=== PATIENT | female | born 1955 | race Caucasian/White ===

== ENCOUNTER → 2016-07-31 | Outpatient (CLI) | payer OTHER ==
[~2016-07-31] MED LIST: ESTR42.5V PV; ESTR42.5V VAGINAL; ESTR8.1S TOPICAL; EVAM1.532 TOPICAL; FINA15GE2 TOPICAL; LEVO-168 PO; MACR100C2 PO; METO-309 PO; MOBI15TA PO; MULT1TAB84 PO; PROT40TA PO; SPIR100T PO; SPIR50TA21 PO; SYNT112T PO; TAB-TAB PO; ZOFR4TAB3 SL
[2016-07-31 09:36] LABS: AUTOMATED NEUTROPHIL # 3.2 TH/MM3 (1.8-7.7); BASOPHIL # 0.1 TH/MM3 (0-0.2); EOSINOPHIL # 0.1 TH/MM3 (0-0.4); EOSINOPHIL % 1.2 % (0.0-4.0); HEMATOCRIT 37.9 % (35.0-46.0); HEMO FLAGS DIFF FINAL; LYMPH % 34.5 % (9.0-44.0); MEAN CELL VOLUME 94.2 FL (80.0-100.0); MEAN CORPUSCULAR HEMOGLOBIN 32.2 PG (27.0-34.0); MEAN CORPUSCULAR HGB CONC 34.2 % (32.0-36.0); MONO % 9.6 % (0.0-8.0); NEUT % 53.7 % (16.0-70.0); PLATELET COUNT 286 TH/MM3 (150-450); RED BLOOD COUNT 4.02 MIL/MM3 (4.00-5.30); RED CELL DISTRIBUTION WIDTH 13.5 % (11.6-17.2); WHITE BLOOD COUNT 5.9 TH/MM3 (4.0-11.0)
[2016-07-31 09:59] LABS: WESTERGREN SEDIMENTATION RATE 5 mm/hr (0-30)
[2016-07-31 10:16] LABS: ALKALINE PHOSPHATASE 83 U/L (45-117); ALT (GPT) 20 U/L (10-53); ANION GAP 7 MEQ/L (5-15); AST (GOT) 15 U/L (15-37); BLOOD UREA NITROGEN 18 MG/DL (7-18); CHLORIDE 102 MEQ/L (98-107); GLOMERULAR FILTRATION RATE 68 ML/MIN (>89); GLUCOSE,FASTING 101 MG/DL (74-99); HDL CHOLESTEROL 64.7 MG/DL (40.0-60.0); LDL CHOLESTEROL 91 MG/DL (0-99); POTASSIUM 4.4 MEQ/L (3.5-5.1); SODIUM (NA) 137 MEQ/L (136-145); THYROXINE (T4) 10.2 MCG/DL (4.8-13.9); TOTAL BILIRUBIN ADULT 0.3 MG/DL (0.2-1.0)
== END ==
LOC: CLAB 09:03
PROVIDERS: ATTEND Family Medicine
DX: E78.2 Mixed hyperlipidemia (principal); E03.9 Hypothyroidism, unspecified
CPT/HCPCS: 36415; 80053; 80061; 84436; 84443; 85025; 85652

== ENCOUNTER 2016-08-18 14:34 | Emergency (ER) | payer OTHER ==
[~2016-08-18] VITALS: Ht 162.6 cm; Wt 82.0 kg
[~2016-08-18 14:34] MED LIST changes: -ESTR42.5V VAGINAL; -EVAM1.532 TOPICAL; -LEVO-168 PO; -MACR100C2 PO; -METO-309 PO; -MULT1TAB84 PO; -SPIR100T PO; -ZOFR4TAB3 SL
[2016-08-18 14:36] VITALS: BP 161/79; PULSE 86; RESP 15; TEMP 98.2; O2SAT 98
--- NOTE | 2016-08-18 17:39 | PD ---
HPI Chief Complaint: Abdominal Pain Time Seen by Provider: 17:30 Travel History International Travel<30 days: No Contact w/Intl Traveler<30days: No Traveled to known affect area: No History of Present Illness HPI 61-year-old female with history of sjogrens, hypothyroidism presents for evaluation of nausea, vomiting, diarrhea, abdominal pain. She reports over the past few days she has had some generalized abdominal pain which she describes as aching sensation which is constant, associated with a sensation of bloating. The pain seems to be worse in the lower quadrants of the abdomen but sometimes it is worse in the upper quadrants of the abdomen. She reports that yesterday evening she began having diarrhea and vomiting. She reports multiple episodes of diarrhea and vomiting throughout the night and throughout the day today which prompted evaluation. Denies any dysuria, flank pain, she has had some chills but she has not had any objective fevers, denies chest pain or cough or congestion or shortness of breath. She reports a history of hysterectomy and appendectomy in the past. No recent antibiotic use. No history of diverticulitis or gallbladder issues. No other complaints. 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) High Cholesterol: No Chemotherapy: No Chest Pain: No Congestive Heart Failure: No COPD: No Diabetes: No Endocrine: Yes Genitourinary: Yes (PROLAPSED BLADDER) Hepatitis: No Hiatal Hernia: No Hypertension: Yes Immune Disorder: Yes (LICHEN PLANUS) Musculoskeletal: Yes (ARTHRITIS L1-5, HIP SPURS) Neurologic: No Psychiatric: No Reproductive: No Respiratory: No Radiation Therapy: No Sleep Apnea: No Thyroid Disease: Yes ?: Not Past Surgical History Abdominal Surgery: No Body Medical Devices: BLADDER TAPE Cardiac Surgery: No Ear Surgery: No Endocrine Surgery: No Eye Surgery: No Genitourinary Surgery: Yes (BLADDER TUCK X2) Gynecologic Surgery: Yes (TOTAL HYSTERECTOMY) Hysterectomy: Yes Oral Surgery: Yes (TONSILLECTOMY) Thoracic Surgery: No Tonsillectomy: Yes Social History Alcohol Use: Yes Tobacco Use: No Substance Use: No Allergies-Medications (Allergen,Severity, Reaction): Coded Allergies: Penicillin (Verified Allergy, Severe, ANAPHYLAXIS, 08/18/16) patient states she has taken ancef without a problem. Reported Meds & Prescriptions Reported Meds & Active Scripts Active Macrobid (Nitrofurantoin Monoh/Nitrofur Macro) 100 Mg Cap 100 Mg PO BID 7 Days Zofran Odt (Ondansetron Odt) 4 Mg Tab 4 Mg SL Q6HR PRN Reported Evamist Topical (Estradiol) 1.53 Mg/Shallowater Shallowater 1 Shallowater TOPICAL DIRECTED Estrace Vaginal (Estradiol) 0.01% Cream 1 Appl VAGINAL HS Spironolactone 100 Mg Tab 100 Mg PO DAILY Protonix (Pantoprazole Sodium) 40 Mg Tab 40 Mg PO DAILY Multivitamin Adults (Multiple Vitamins W/ Minerals) 1 Tab 1 Tab PO DAILY Levothyroxine (Levothyroxine Sodium) 112 Mcg Tab 112 Mcg PO DAILY Review of Systems Except as stated in HPI: all other systems reviewed are Neg Physical Exam Narrative GENERAL: Well-developed well-nourished female in no acute distress SKIN: Warm and dry. HEAD: Atraumatic. Normocephalic. EYES: Pupils equal and round. No scleral icterus. No injection or drainage. ENT: No nasal bleeding or discharge. Mucous membranes pink and moist. NECK: Trachea midline. No JVD. CARDIOVASCULAR: Regular rate and rhythm. No murmur appreciated. RESPIRATORY: No accessory muscle use. Clear to auscultation. Breath sounds equal bilaterally. GASTROINTESTINAL: Abdomen soft, generalized mild tenderness to palpation, particularly in the left lower quadrant, without guarding. MUSCULOSKELETAL: No obvious deformities. No edema. NEUROLOGICAL: Awake and alert. No obvious cranial nerve deficits. Motor grossly within normal limits. Normal speech. PSYCHIATRIC: Appropriate mood and affect; insight and judgment normal. Data Data Last Documented VS Vital Signs Date Time Temp Pulse Resp B/P Pulse Ox O2 Delivery O2 Flow Rate FiO2 08/18/16 22:00 81 16 143/75 96 Room Air 08/18/16 14:36 98.2 Orders Complete Blood Count With Diff (08/18/16 17:37) Comprehensive Metabolic Panel (08/18/16 17:37) Lipase (08/18/16 17:37) Urinalysis - C+S If Indicated (08/18/16 17:37) Magnesium (Mg) (08/18/16 17:37) Urine Culture (08/18/16 18:30) Ct Abd/Pel W Iv Contrast(Rout) (08/18/16 ) Sodium Chlor 0.9% 1000 Ml Inj (Ns 1000 M (08/18/16 22:00) Ondansetron Inj (Zofran Inj) (08/18/16 22:00) Iohexol 350 Inj (Omnipaque 350 Inj) (08/18/16 22:20) Labs Laboratory Tests Test 08/18/16 08/18/16 17:45 18:30 White Blood Count 9.1 TH/MM3 Red Blood Count 4.31 MIL/MM3 Hemoglobin 13.5 GM/DL Hematocrit 40.6 % Mean Corpuscular Volume 94.2 FL Mean Corpuscular Hemoglobin 31.4 PG Mean Corpuscular Hemoglobin 33.3 % Concent Red Cell Distribution Width 13.2 % Platelet Count 264 TH/MM3 Mean Platelet Volume 7.4 FL Neutrophils (%) (Auto) 78.2 % Lymphocytes (%) (Auto) 12.2 % Monocytes (%) (Auto) 9.0 % Eosinophils (%) (Auto) 0.3 % Basophils (%) (Auto) 0.3 % Neutrophils # (Auto) 7.1 TH/MM3 Lymphocytes # (Auto) 1.1 TH/MM3 Monocytes # (Auto) 0.8 TH/MM3 Eosinophils # (Auto) 0.0 TH/MM3 Basophils # (Auto) 0.0 TH/MM3 CBC Comment DIFF FINAL Differential Comment Sodium Level 134 MEQ/L Potassium Level 3.6 MEQ/L Chloride Level 99 MEQ/L Carbon Dioxide Level 27.8 MEQ/L Anion Gap 7 MEQ/L Blood Urea Nitrogen 11 MG/DL Creatinine 0.68 MG/DL Estimat Glomerular Filtration 89 ML/MIN Rate Random Glucose 92 MG/DL Calcium Level 8.8 MG/DL Magnesium Level 1.9 MG/DL Total Bilirubin 0.3 MG/DL Aspartate Amino Transf 21 U/L (AST/SGOT) Alanine Aminotransferase 23 U/L (ALT/SGPT) Alkaline Phosphatase 94 U/L Total Protein 8.1 GM/DL Albumin 4.2 GM/DL Lipase 111 U/L Urine Color YELLOW Urine Turbidity HAZY Urine pH 6.0 Urine Specific [place] 1.019 Urine Protein TRACE mg/dL Urine Glucose (UA) NEG mg/dL Urine Ketones 10 mg/dL Urine Occult Blood NEG Urine Nitrite NEG Urine Bilirubin NEG Urine Urobilinogen LESS THAN 2.0 MG/DL Urine Leukocyte Esterase LARGE Urine RBC 3 /hpf Urine WBC 104 /hpf Urine Squamous Epithelial 1 /hpf Cells Urine Mucus FEW /lpf Microscopic Urinalysis Comment CULTURE INDICATED MDM Medical Decision Making Medical Screen Exam Complete: Yes Emergency Medical Condition: Yes Medical Record Reviewed: Yes Differential Diagnosis Diverticulitis, colitis, cystitis, pyelonephritis, dehydration, gastroenteritis , pancreatitis, biliary pathology Narrative Course This patient was initially seen in triage where workup has been initiated. The patient will be moved to a medical bed and one becomes available. Scripts Nitrofurantoin Monohydrate Macrocrystals (Macrobid)100 Mg [id number] Mg PO BID 7 Days Ref 0 Prov:Janice Diaz MD 08/19/16 Ondansetron Odt (Zofran Odt)4 Mg Tab4 Mg SL Q6HR PRN (Nausea/Vomiting) #12 TAB Ref 0 Prov:Janice Diaz MD 08/19/16 Zac Yeung Aug 18, 2016 17:39
[2016-08-18 18:05] LABS: AUTOMATED NEUTROPHIL # 7.1 TH/MM3 (1.8-7.7); BASOPHIL % 0.3 % (0.0-2.0); EOSINOPHIL % 0.3 % (0.0-4.0); HEMATOCRIT 40.6 % (35.0-46.0); HEMO FLAGS DIFF FINAL; LYMPH % 12.2 % (9.0-44.0); LYMPHOCYTE # 1.1 TH/MM3 (1.0-4.8); MEAN CELL VOLUME 94.2 FL (80.0-100.0); MEAN CORPUSCULAR HEMOGLOBIN 31.4 PG (27.0-34.0); MEAN CORPUSCULAR HGB CONC 33.3 % (32.0-36.0); NEUT % 78.2 % (16.0-70.0); PLATELET COUNT 264 TH/MM3 (150-450); RED BLOOD COUNT 4.31 MIL/MM3 (4.00-5.30); RED CELL DISTRIBUTION WIDTH 13.2 % (11.6-17.2); WHITE BLOOD COUNT 9.1 TH/MM3 (4.0-11.0)
[2016-08-18 18:22] LABS: ANION GAP 7 MEQ/L (5-15); AST (GOT) 21 U/L (15-37); BICARBONATE 27.8 MEQ/L (21.0-32.0); BLOOD UREA NITROGEN 11 MG/DL (7-18); CHLORIDE 99 MEQ/L (98-107); GLOMERULAR FILTRATION RATE 89 ML/MIN (>89); POTASSIUM 3.6 MEQ/L (3.5-5.1); SODIUM (NA) 134 MEQ/L (136-145)
[2016-08-18 18:25] LABS: ALKALINE PHOSPHATASE 94 U/L (45-117); ALT (GPT) 23 U/L (10-53); TOTAL BILIRUBIN ADULT 0.3 MG/DL (0.2-1.0)
[2016-08-18 18:55] LABS: BLOOD, URINE NEG (NEG); COMMENT (UR) CULTURE INDICATED; CULTURE IF INDICATED CULTURE INDICATED; GLUCOSE,URINE NEG (NEG); KETONE, URINE 10 mg/dL (NEG); MUCUS URINE FEW /lpf (OCC); NITRITE,URINE NEG (NEG); SQUAMOUS EPITHELIAL CELL URINE 1 /hpf (0-5); URINE COLOR YELLOW (YELLW/STRAW)
[2016-08-18] MEDS ORDERED: PROT40TA PO (21:55)
[2016-08-18] MEDS ORDERED: ESTR42.5V VAGINAL (21:55)
[2016-08-18] MEDS ORDERED: EVAM1.532 TOPICAL (21:55)
[2016-08-18] MEDS ORDERED: LEVO-168 PO (21:55)
[2016-08-18] MEDS ORDERED: MULT1TAB84 PO (21:55)
[2016-08-18] MEDS ORDERED: SPIR100T PO (21:55)
[2016-08-18 22:00] VITALS: BP 143/75; PULSE 81; RESP 16; O2SAT 96
[2016-08-18] MEDS ORDERED: ONDANSETRON HCL 4 MG/2 ML VIAL IV PUSH ONE (22:00)
[2016-08-18] MEDS ORDERED: SODIUM CHLOR 0.9% 1000 ML INJ 1,000 ML IV ONE (22:00)
[2016-08-18] MEDS ORDERED: IOHEXOL 350 MG/ML 10 ML VIAL (for RAD DIAG) IV ONE (22:20)
--- NOTE | 2016-08-18 23:05 | RADRPT ---
EXAM DATE/TIME: 08/18/2016 22:18 [place] COMPARISON: No previous studies available for comparison. INDICATIONS : Abdominal pain with nausea. IV CONTRAST: 100 cc Omnipaque 350 (iohexol) IV ORAL CONTRAST: No oral contrast ingested. RADIATION DOSE: 12.17 CTDIvol (mGy) MEDICAL HISTORY : Gastroesophageal reflux disease. SURGICAL HISTORY : Hysterectomy. Bladder prolapse and repair. ENCOUNTER: Initial ACUITY: 1 day PAIN SCALE: 5/10 LOCATION: Bilateral lower quadrant TECHNIQUE: Volumetric scanning of the abdomen and pelvis was performed. Using automated exposure control and ad justment of the mA and/or kV according to patient size, radiation dose was kept as low as reasonably achievable to obtain optimal diagnostic quality images. FINDINGS: LOWER LUNGS: The visualized lower lungs are clear. LIVER: There is a 14 mm cyst within the right lobe. There is no dilation of the biliary tree. No calcified gallstones. SPLEEN: Normal size without lesion. PANCREAS: Within normal limits. KIDNEYS: Normal in size and shape. There is no mass, stone or hydronephrosis. ADRENAL GLANDS: Within normal limits. VASCULAR: There is no aortic aneurysm. BOWEL/MESENTERY: The stomach, small bowel, and colon demonstrate no acute abnormality. There is no free intraperitone al air or fluid. ABDOMINAL WALL: Within normal limits. RETROPERITONEUM: There is no lymphadenopathy. BLADDER: No wall thickening or mass. REPRODUCTIVE: Within normal limits. INGUINAL: There is no lymphadenopathy or hernia. MUSCULOSKELETAL: Degenerative changes are noted throughout the lumbar spine. CONCLUSION: 14 mm cyst within the right lobe of the liver. Degenerative changes throughout the gino mbar spine. Star Arreaga MD on August 18, 2016 at 23:01 Board Certified Radiologist. This report was verified electronically.
[2016-08-19] MEDS ORDERED: ZOFR4TAB3 SL (00:13)
[2016-08-19] MEDS ORDERED: MACR100C2 PO (00:13)
--- NOTE | 2016-08-19 00:13 | PD ---
Physical Exam Narrative Patient is a 61-year-old female comes in complaining of abdominal pain, nausea, vomiting. Patient was seen in triage where workup was started. She states for the past few days she has felt like her belly is been bloated after eating. Last night she started to feel very nauseous, she had nausea vomiting and several episodes of diarrhea. She denies seeing any blood in her stool or her vomit. She says she has had pain to her upper and lower abdomen. She says it seemed to be the worst after she ate fried onions last night at dinner. She denies any fever or chills. She denies any dysuria. Data Data Last Documented VS Vital Signs Date Time Temp Pulse Resp B/P Pulse Ox O2 Delivery O2 Flow Rate FiO2 08/18/16 22:00 81 16 143/75 96 Room Air 08/18/16 14:36 98.2 Orders Complete Blood Count With Diff (08/18/16 17:37) Comprehensive Metabolic Panel (08/18/16 17:37) Lipase (08/18/16 17:37) Urinalysis - C+S If Indicated (08/18/16 17:37) Magnesium (Mg) (08/18/16 17:37) Urine Culture (08/18/16 18:30) Ct Abd/Pel W Iv Contrast(Rout) (08/18/16 ) Sodium Chlor 0.9% 1000 Ml Inj (Ns 1000 M (08/18/16 22:00) Ondansetron Inj (Zofran Inj) (08/18/16 22:00) Iohexol 350 Inj (Omnipaque 350 Inj) (08/18/16 22:20) Labs Laboratory Tests Test 08/18/16 08/18/16 17:45 18:30 White Blood Count 9.1 TH/MM3 Red Blood Count 4.31 MIL/MM3 Hemoglobin 13.5 GM/DL Hematocrit 40.6 % Mean Corpuscular Volume 94.2 FL Mean Corpuscular Hemoglobin 31.4 PG Mean Corpuscular Hemoglobin 33.3 % Concent Red Cell Distribution Width 13.2 % Platelet Count 264 TH/MM3 Mean Platelet Volume 7.4 FL Neutrophils (%) (Auto) 78.2 % Lymphocytes (%) (Auto) 12.2 % Monocytes (%) (Auto) 9.0 % Eosinophils (%) (Auto) 0.3 % Basophils (%) (Auto) 0.3 % Neutrophils # (Auto) 7.1 TH/MM3 Lymphocytes # (Auto) 1.1 TH/MM3 Monocytes # (Auto) 0.8 TH/MM3 Eosinophils # (Auto) 0.0 TH/MM3 Basophils # (Auto) 0.0 TH/MM3 CBC Comment DIFF FINAL Differential Comment Sodium Level 134 MEQ/L Potassium Level 3.6 MEQ/L Chloride Level 99 MEQ/L Carbon Dioxide Level 27.8 MEQ/L Anion Gap 7 MEQ/L Blood Urea Nitrogen 11 MG/DL Creatinine 0.68 MG/DL Estimat Glomerular Filtration 89 ML/MIN Rate Random Glucose 92 MG/DL Calcium Level 8.8 MG/DL Magnesium Level 1.9 MG/DL Total Bilirubin 0.3 MG/DL Aspartate Amino Transf 21 U/L (AST/SGOT) Alanine Aminotransferase 23 U/L (ALT/SGPT) Alkaline Phosphatase 94 U/L Total Protein 8.1 GM/DL Albumin 4.2 GM/DL Lipase 111 U/L Urine Color YELLOW Urine Turbidity HAZY Urine pH 6.0 Urine Specific [place] 1.019 Urine Protein TRACE mg/dL Urine Glucose (UA) NEG mg/dL Urine Ketones 10 mg/dL Urine Occult Blood NEG Urine Nitrite NEG Urine Bilirubin NEG Urine Urobilinogen LESS THAN 2.0 MG/DL Urine Leukocyte Esterase LARGE Urine RBC 3 /hpf Urine WBC 104 /hpf Urine Squamous Epithelial 1 /hpf Cells Urine Mucus FEW /lpf Microscopic Urinalysis Comment CULTURE INDICATED MDM Supervised Visit with CHRISTY: No Narrative Course Physical exam shows mild tenderness in the lower abdomen. No rebound or guarding. There is no CVA tenderness. Lungs are clear to auscultation. Heart rate is regular in rate and rhythm. Patient is a and O 4. Labs that were sent from triage show no acute abnormalities other than her urinalysis showing a large amount of white blood cells.. CT abdomen and pelvis performed shows a cyst in the liver, no acute abnormalities. Patient given IV fluids as well as Zofran. She reports feeling much better. She is able to drink water without vomiting. She has an appointment with GI tomorrow. She is advised to keep this appointment. Will be discharged with prescription for Zofran. Will be given prescription for Macrobid for dirty urine. Diagnosis Primary Impression: Nausea, vomiting and diarrhea Additional Impression: UTI (urinary tract infection) Qualified Code: N30.00 - Acute cystitis without hematuria Patient Instructions: Acute Nausea and Vomiting (ED), General Instructions, Urinary Tract Infection in Women (ED) Departure Forms: Tests/Procedures Additional Instruction: Follow up with GI. Return to the ED as needed for any worsening symptoms. Drink plenty of fluids. Eat a bland diet. Scripts Nitrofurantoin Monohydrate Macrocrystals (Macrobid)100 Mg [id number] Mg PO BID 7 Days Ref 0 Prov:Janice Diaz MD 08/19/16 Ondansetron Odt (Zofran Odt)4 Mg Tab4 Mg SL Q6HR PRN (Nausea/Vomiting) #12 TAB Ref 0 Prov:Janice Diaz MD 08/19/16 Disposition: 01 DISCHARGE HOME Condition: Stable Janice Diaz MD Aug 19, 2016 00:13
[2016-09-30] MEDS ORDERED: METO-309 PO (10:17)
== END 2016-08-19 00:22 | disposition home or self-care (01) ==
LOC: NETRI 14:34 → NEPE 08-19 00:22
DX: R11.2 Nausea with vomiting, unspecified (principal); R19.7 Diarrhea, unspecified; N39.0 Urinary tract infection, site not specified; B96.89 Other specified bacterial agents as the cause of diseases classified elsewhere; I10 Essential (primary) hypertension; R00.0 Tachycardia, unspecified; M35.00 Sjogren syndrome, unspecified; E03.9 Hypothyroidism, unspecified
CPT/HCPCS: 74177; 80053; 81001; 83690; 83735; 85025; 87086; 96361; 96374; 99284; J2405; J7030; Q9967

== ENCOUNTER → 2016-12-23 | Outpatient (CLI) | payer OTHER ==
[~2016-12-23] VITALS: Ht 162.6 cm; Wt 79.5 kg
[~2016-12-23] MED LIST changes: +CHLORHEXIDINE GLUCONATE 2 % 1 PACK (2 CLOTHS) TOPICAL PRN; -ESTR42.5V PV; +ESTR42.5V VAGINAL; -ESTR8.1S TOPICAL; +EVAM1.532 TOPICAL; -FINA15GE2 TOPICAL; +INSULIN HUMAN REGULAR 1,000 UNITS/10 ML VIAL SQ PRN; +LACTATED RINGER'S 1000 ML IV PRN; +LEVO-168 PO; +MAGNESIUM HYDROXIDE SUSP 30 ML CUP PO ONE; +METO-309 PO; +METOPROLOL TARTRATE 25 MG TAB PO PRN; -MOBI15TA PO; +MULT1TAB84 PO; +PLAQ200T PO; +POVIDONE IODINE 5% (ANTISEPSIS KIT) 4 APPLICATIONS EACH NARE PRN; +PROPOFOL 200 MG/20 ML AMP IV ONE; +SODIUM CHLORID 0.9% 500 ML IV PRN; +SPIR100T PO; -SPIR50TA21 PO; -SYNT112T PO; -TAB-TAB PO
[2016-12-23 09:18] VITALS: BP 150/81; PULSE 82; RESP 20; TEMP 97.7; O2SAT 99
[2016-12-23 10:42] VITALS: TEMP 97.9
--- NOTE | 2016-12-23 10:56 | GIPROC ---
[facility] [address] [facility]. [facility], [address] EGD WITH DILATION PROCEDURE REPORT EXAM DATE: 12/23/2016 PATIENT NAME: Radha Nunes MR#: [id number] BIRTHDATE: 1955 ATTENDING: Erica Jacobs MD ORDER #: [id number] [employer] REPRESENTATIVE: Cuong He and Silvana Sidhu STATUS: outpatient INDICATIONS: The patient is a 61 yr old female here for an EGD with dilation due to reflux, dysphagia PROCEDURE PERFORMED: EGD w/ biopsy EGD w/ dilation of esophagus via guidewire MEDICATIONS: None and Per Anesthesia. TOPICAL ANESTHETIC: none CONSENT: The patient understands the risks and benefits of the procedure and understands that these risks include, but are not limited to: sedation, allergic reaction, infection, perforation and/or bleeding. Alternative means of evaluation and treatment include, among others: physical exam, x-rays, and/or surgical intervention. The patient elects to proceed with this endoscopic procedure. medical equipment was checked for proper function. Hand hygiene and appropriate measures for infection prevention was taken. After the risks, benefits and alternatives of the procedure were thoroughly explained, Informed consent was verified, confirmed and timeout was successfully executed by the treatment team. The patient was anesthetized with topical anesthesia and the EC-[id number] (Pedi C) endoscope was introduced through the mouth and advanced to the second portion of the duodenum. The instrument was slowly withdrawn as the mucosa was fully examined. Gastritis antrum-biopsy esophagitis distal esophagus biopsy duodenum normal esophageal sapsm. Dilation was performed at gastroesophageal junction. DILATOR: SIZE(S): RESISTANCE: HEME: APPEARANCE: Dilator: Savary over guidewire Size(s): 17 Resistance: minimal Heme: yes COMMENT: Retroflexed views revealed a hiatal hernia ADVERSE EVENTS: There were no complications. IMPRESSIONS: 1. Gastritis antrum-biopsy esophagitis distal esophagus biopsy duodenum normal esophageal sapsm 2. Retroflexed views revealed a hiatal hernia RECOMMENDATIONS: 1. Await biopsy results. Biopsy results will not be ready for 7-10 days. If you don't hear from us in two weeks, call our office for biopsy results. 2. Anti-reflux regimen 3. Continue PPI 4. Dilatations PRN REPEAT EXAM: EGD pending biopsy results Erica Jacobs MD eSigned: Erica Jacobs MD 12/23/2016 10:55 AM cc: Mann Lorenzo M.D. PATIENT NAME: Radha Nunes MR#: [id number]
--- NOTE | 2016-12-23 10:58 | GIPROC ---
[facility] [address] [facility]. [facility], [address] COLONOSCOPY PROCEDURE REPORT EXAM DATE: 12/23/2016 PATIENT NAME: Radha Nunes MR #: [id number] BIRTHDATE: 1955 ENDOSCOPIST: Erica Jacobs MD ORDER #: [id number] INSPECTOR OUTSIDE PRODUCTION: Cuong He and Silvana Sidhu STATUS: outpatient INDICATIONS: The patient is a 61 yr old female here for a colonoscopy due to cecum PROCEDURE PERFORMED: Colonoscopy, diagnostic MEDICATIONS: None and Per Anesthesia. PREP QUALITY: good PREP TYPE:Other: ESTIMATED BLOOD LOSS: None CONSENT: The patient understands the risks and benefits of the procedure and understands that these risks include, but are not limited to: sedation, allergic reaction, infection, perforation and/or bleeding. Alternative means of evaluation and treatment include, among others: physical exam, x-rays, and/or surgical intervention. The patient elects to proceed with this endoscopic procedure. medical equipment was checked for proper function. Hand hygiene and appropriate measures for infection prevention was taken. After the risks, benefits and alternatives of the procedure were thoroughly explained, Informed consent was verified, confirmed and timeout was successfully executed by the treatment team. A digital exam revealed external hemorrhoids The Pentax EC-[id number] endoscope was introduced through the anus and advanced to the cecum, which was identified by both the appendix and ileocecal valve. The instrument was then slowly withdrawn as the colon was fully examined. COLON FINDINGS: Tortous colon, scope changed to ultraslim scope normal colonoscopy otherwise. Retroflexed views revealed internal hemorrhoids and Retroflexed views revealed small internal hemorrhoids The scope was then completely withdrawn from the patient and the procedure terminated. PROCEDURE WITHDRAWAL TIME:6minutes ADVERSE EVENTS: There were no complications. IMPRESSIONS: 1. Tortous colon, scope changed to ultraslim scope normal colonoscopy otherwise 2. Retroflexed views revealed internal hemorrhoids 3. Retroflexed views revealed small internal hemorrhoids 4. Revealed external hemorrhoids RECOMMENDATIONS: 1. Benefiber 2 tsp daily 2. High fiber diet 3. Probiotics from any [facility] or health food store 4. Yearly rectal exams RECALL: Return 10 years Colonoscopy Erica Jacobs MD eSigned: Erica Jacobs MD 12/23/2016 10:57 AM cc: Mann Lorenzo M.D.
[2016-12-23 11:02] VITALS: BP 138/72; PULSE 70; RESP 18; O2SAT 100
--- NOTE | 2016-12-23 13:54 | EKG ---
Date Performed: 12/23/2016 Time Performed: 09:32:16 PTAGE: 61 years EKG: Sinus rhythm Since previous tracing, no significant change noted NORMAL ECG PREVIOUS TRACING : 09/17/2015 11.05 DOCTOR: Amrit Gilbert Interpretating Date/Time 12/23/2016 13:52:33
== END ==
LOC: HEND 08:31
PROVIDERS: ATTEND Internal Medicine Gastroenterology
DX: K29.50 Unspecified chronic gastritis without bleeding (principal); K20.9 Esophagitis, unspecified; R13.10 Dysphagia, unspecified; K44.9 Diaphragmatic hernia without obstruction or gangrene; K22.4 Dyskinesia of esophagus; K64.8 Other hemorrhoids; K64.4 Residual hemorrhoidal skin tags; R10.9 Unspecified abdominal pain; Z01.810 Encounter for preprocedural cardiovascular examination
CPT/HCPCS: 00740; 43239; 43248; 45378; 88305; 88312; 93005; C1769

== ENCOUNTER → 2017-04-21 | Outpatient (CLI) | payer OTHER ==
[~2017-04-21] MED LIST changes: -CHLORHEXIDINE GLUCONATE 2 % 1 PACK (2 CLOTHS) TOPICAL PRN; -INSULIN HUMAN REGULAR 1,000 UNITS/10 ML VIAL SQ PRN; -LACTATED RINGER'S 1000 ML IV PRN; -MAGNESIUM HYDROXIDE SUSP 30 ML CUP PO ONE; -METOPROLOL TARTRATE 25 MG TAB PO PRN; -MULT1TAB84 PO; -POVIDONE IODINE 5% (ANTISEPSIS KIT) 4 APPLICATIONS EACH NARE PRN; -PROPOFOL 200 MG/20 ML AMP IV ONE; -SODIUM CHLORID 0.9% 500 ML IV PRN
[2017-04-21 11:18] LABS: AUTOMATED NEUTROPHIL # 2.7 TH/MM3 (1.8-7.7); BASOPHIL % 0.9 % (0.0-2.0); EOSINOPHIL % 0.8 % (0.0-4.0); HEMATOCRIT 36.4 % (35.0-46.0); HEMO FLAGS DIFF FINAL; LYMPH % 34.3 % (9.0-44.0); LYMPHOCYTE # 1.8 TH/MM3 (1.0-4.8); MEAN CELL VOLUME 94.8 FL (80.0-100.0); MEAN CORPUSCULAR HEMOGLOBIN 33.1 PG (27.0-34.0); MEAN CORPUSCULAR HGB CONC 34.9 % (32.0-36.0); PLATELET COUNT 365 TH/MM3 (150-450); RED BLOOD COUNT 3.84 MIL/MM3 (4.00-5.30); RED CELL DISTRIBUTION WIDTH 13.4 % (11.6-17.2); WHITE BLOOD COUNT 5.2 TH/MM3 (4.0-11.0)
[2017-04-21 11:33] LABS: ANION GAP 5 MEQ/L (5-15); AST (GOT) 19 U/L (15-37); BICARBONATE 30.7 MEQ/L (21.0-32.0); BLOOD UREA NITROGEN 15 MG/DL (7-18); CHLORIDE 97 MEQ/L (98-107); GLOMERULAR FILTRATION RATE 89 ML/MIN (>89); GLUCOSE,FASTING 99 MG/DL (74-99); SODIUM (NA) 133 MEQ/L (136-145)
[2017-04-21 11:44] LABS: ALKALINE PHOSPHATASE 73 U/L (45-117); ALT (GPT) 23 U/L (10-53); HDL CHOLESTEROL 72.2 MG/DL (40.0-60.0); LDL CHOLESTEROL 99 MG/DL (0-99); THYROXINE (T4) 8.7 MCG/DL (4.8-13.9); TOTAL BILIRUBIN ADULT 0.5 MG/DL (0.2-1.0)
[2017-04-21 16:54] LABS: HEMOGLOBIN A1a 1.3 %; HEMOGLOBIN A1b 1.4 %; HEMOGLOBIN Ao 85.6 %; HEMOGLOBIN LA1C 2.1 %; HEMOGLOBIN P3 3.8 %
== END ==
LOC: CLAB 10:49
PROVIDERS: ATTEND Family Medicine
DX: E03.9 Hypothyroidism, unspecified (principal); K21.9 Gastro-esophageal reflux disease without esophagitis; R49.0 Dysphonia
CPT/HCPCS: 36415; 80053; 80061; 83036; 84436; 84443; 85025

== ENCOUNTER → 2017-10-14 | Outpatient (CLI) | payer OTHER ==
[2017-10-14 10:19] LABS: AUTOMATED NEUTROPHIL # 3.7 TH/MM3 (1.8-7.7); BASOPHIL # 0.1 TH/MM3 (0-0.2); BASOPHIL % 1.3 % (0.0-2.0); EOSINOPHIL # 0.1 TH/MM3 (0-0.4); EOSINOPHIL % 1.3 % (0.0-4.0); HEMATOCRIT 37.7 % (35.0-46.0); LYMPH % 27.5 % (9.0-44.0); LYMPHOCYTE # 1.7 TH/MM3 (1.0-4.8); MEAN CELL VOLUME 94.2 FL (80.0-100.0); MEAN CORPUSCULAR HEMOGLOBIN 32.5 PG (27.0-34.0); MEAN CORPUSCULAR HGB CONC 34.5 % (32.0-36.0); MEAN PLATELET VOLUME 6.7 FL (7.0-11.0); MONO % 9.6 % (0.0-8.0); MONOCYTE # 0.6 TH/MM3 (0-0.9); NEUT % 60.3 % (16.0-70.0); PLATELET COUNT 345 TH/MM3 (150-450); RED BLOOD COUNT 4.01 MIL/MM3 (4.00-5.30); WHITE BLOOD COUNT 6.1 TH/MM3 (4.0-11.0)
[2017-10-14 10:43] LABS: WESTERGREN SEDIMENTATION RATE 4 mm/hr (0-30)
[2017-10-14 11:00] LABS: ALBUMIN 3.6 GM/DL (3.4-5.0); AST (GOT) 29 U/L (15-37); BICARBONATE 27.2 MEQ/L (21.0-32.0); BLOOD UREA NITROGEN 14 MG/DL (7-18); CALCIUM 8.5 MG/DL (8.5-10.1); CHLORIDE 91 MEQ/L (98-107); CHOLESTEROL 200 MG/DL (120-200); CREATININE 0.78 MG/DL (0.50-1.00); GLOMERULAR FILTRATION RATE 75 ML/MIN (>89); GLUCOSE,FASTING 89 MG/DL (74-99); SODIUM (NA) 127 MEQ/L (136-145)
[2017-10-14 11:10] LABS: ALKALINE PHOSPHATASE 85 U/L (45-117); ALT (GPT) 24 U/L (10-53); CHOLESTEROL/ HDL RATIO 2.49 RATIO; HDL CHOLESTEROL 80.3 MG/DL (40.0-60.0); LDL CHOLESTEROL 106 MG/DL (0-99); THYROXINE (T4) 10.6 MCG/DL (4.8-13.9); TOTAL BILIRUBIN ADULT 0.7 MG/DL (0.2-1.0); TOTAL PROTEIN 7.3 GM/DL (6.4-8.2); TRIGLYCERIDES 70 MG/DL (42-150)
== END ==
LOC: CLAB 09:54
PROVIDERS: ATTEND Family Medicine
DX: E03.9 Hypothyroidism, unspecified (principal); E78.2 Mixed hyperlipidemia; M06.4 Inflammatory polyarthropathy
CPT/HCPCS: 36415; 80053; 80061; 84436; 84443; 85025; 85652